=== PATIENT | male | born 1990 | race African-American/Black ===

== ENCOUNTER 2019-04-30 20:04 | Emergency (ER) | payer SELFPAY ==
[2019-04-30] MEDS ORDERED: Haloperidol INJ IV/IM* 5 MG/ML AMP IM ONE (20:06)
[2019-04-30] MEDS ORDERED: LORazepam INJ* 2 MG/ML 1 ML VIAL IM ONE (20:06)
[2019-04-30] MEDS ORDERED: diPHENhydraMINE IV* 50 MG/ML 1 ml VIAL (BENADRYL) IM ONE (20:06)
[2019-04-30] MEDS ORDERED: LORazepam INJ* 2 MG/ML 1 ML VIAL ONE (20:09)
[2019-04-30] MEDS ORDERED: Haloperidol INJ IV/IM* 5 MG/ML AMP ONE ×3 (20:10→20:29)
[2019-04-30] MEDS ORDERED: diPHENhydraMINE IV* 50 MG/ML 1 ml VIAL (BENADRYL) ONE (20:10)
--- NOTE | 2019-04-30 20:13 | ED ---
Substance Abuse/Use - HPI Summary HPI Summary: This patient is a 28 year old male brought in by EMS/LE on a 941 presenting to [facility] with a chief complaint of substance abuse/use. Patient was uncooperative to LE and EMS. EMS states the patient was drinking all day and smoked marijuana. Patient is alert and shouting expletives at the [employer] in the ED. This patient is a level 5 caveat due to altered mental status. - History Of Current Complaint Chief Complaint: EDSubstanceAbuse Stated Complaint: 941 PER EMS Hx Obtained From: EMS - Allergies/Home Medications Allergies/Adverse Reactions: Allergies Allergy/AdvReac Type Severity Reaction Status Date / Time No Known Allergies Allergy Verified 04/30/19 20:38 Home Medications: Home Medications Unobtainable 04/30/19 [History Confirmed 04/30/19] PMH/Surg Hx/FS Hx/Imm Hx - Additional Comments History Additional Comments: LEVEL 5 CAVEAT: PMH Limited due to Altered Mental Status Review of Systems Psychological: Other - Intoxication All Other Systems Reviewed And Are Negative: No Physical Exam - Summary Physical Exam Summary: Appearance: Well-appearing, Well-nourished, lying in bed comfortably, uncooperative. Skin: Warm, dry, no obvious rash Eyes: sclera anicteric, no conjunctival pallor ENT: mucous membranes moist, pharynx appears normal Neck: Supple, nontender Respiratory: Clear to auscultation, no signs of respiratory distress Cardiovascular: Normal S1, S2. No murmurs. Normal distal pulses in tibial and radial bilaterally. Abdomen: Soft, nontender, normal active bowel sounds present Musculoskeletal: Normal, Strength/ROM Intact Neurological: Patient is alert and oriented X3. Psychiatric: Triage Information Reviewed: Yes Vital Signs Reviewed: Yes Procedures - Sedation Patient Received Moderate/Deep Sedation with Procedure: No Diagnostics - Laboratory Result Diagrams: 04/30/19 20:46 04/30/19 20:46 Lab Statement: Any lab studies that have been ordered have been reviewed, and results considered in the medical decision making process. Course/Dx - Course Course Of Treatment: This patient is a 28 year old male brought in by EMS/LE on a 941 presenting to [facility] with a chief complaint of substance abuse/use. The patient will be discharged once sober. The patient will be signed out to Dr. Laughlin at shift change 0700 pending sobriety. - Diagnoses Provider Diagnoses: Alcohol intoxication Discharge ED - Sign-Out/Discharge Documenting (check all that apply): Sign-Out Patient Signing out patient TO: Vern Laughlin - Pend Sobriety at shift change 0700 - Discharge Plan Condition: Stable Disposition: HOME Patient Education Materials: Alcohol Intoxication (ED) Referrals: Calderon Carver MD [Medical Doctor] - 3 Days Additional Instructions: Please follow-up with your primary care physician in 2-3 days. RETURN TO THE ER FOR WORSENING OR CHANGING SYMPTOMS. - Billing Disposition and Condition Condition: STABLE Disposition: Home - Attestation Statements Document Initiated by Scribe: Yes Documenting Scribe: Dwayne Crockett Provider For Whom Candace is Documenting (Include Credential): Vern Parker MD Scribe Attestation: Dwayne Pulido, aliceed for Vern Parker MD on 05/05/19 at 1813. Scribe Documentation Reviewed: Yes Provider Attestation: The documentation as recorded by the Dwayne huff accurately reflects the service I personally performed and the decisions made by me, Vern Parker MD Status of Scribe Document: Viewed
[2019-04-30 20:58] LABS: ABS Eosinophils 0.1 10^3/ul (0-0.6); ABS Lymphocytes 2.2 10^3/ul (1.0-4.8); ABS Monocytes 0.9 10^3/ul (0-0.8); ABS Neutrophils 8.3 10^3/ul (1.5-7.7); Hematocrit 49 % (42-52); Hemoglobin 16.6 g/dL (14.0-18.0); Lymphocyte % 19.1 %; Mean Corpuscular HGB Conc 34 g/dL (31-36); Mean Corpuscular Hemoglobin 29 pg (27-31); Mean Corpuscular Volume 84 fL (80-94); Mean Platelet Volume 7.5 fL (7.4-10.4); Nucleated Red Blood Cells % 0.1; Platelet Count 305 10^3/uL (150-450); Red Blood Count 5.76 10^6 /uL (4.18-5.48); Red Cell Distribution Width 15 % (10-15); White Blood Count 11.5 10^3/uL (3.5-10.8)
[2019-04-30 21:18] LABS: Albumin 4.5 g/dL (3.2-5.2); Albumin/Globulin Ratio 1.6 (1-3); BUN/Creatinine Ratio 9.5 (8-20); Calcium 9.4 mg/dL (8.6-10.3); EGFR African American 91.4 (>60); EGFR Non-African American 75.5 (>60); Globulin 2.8 g/dL (2-4); Potassium 3.7 mmol/L (3.5-5.0); Total Bilirubin 0.7 mg/dL (0.2-1.0); Total Protein 7.3 g/dL (6.4-8.9)
--- NOTE | 2019-05-01 07:05 | ED ---
Progress - Progress Note Progress Note: This patient is a 28 y/o M brought to [facility] by LE/EMS on a 941 with a chief complaint of alcohol intoxication. Patient is a sign-out from Dr. Vern Parker to Dr. Vern Laughlin at 0700 on 05/01/19 at shift change pending sobriety. Course/Dx - Course Course Of Treatment: This patient is a 28 y/o M brought to [facility] by LE/EMS on a 941 with a chief complaint of alcohol intoxication. Patient is a sign-out from Dr. Vern Parker to Dr. Vern Laughlin at 0700 on 05/01/19 at shift change pending sobriety. In the ED, patient sobered, was able to ambulate around the department, and will be discharged home with dx of alcohol intoxication. Patient undersatnds and agrees with this plan. - Diagnoses Provider Diagnoses: Alcohol intoxication Discharge ED - Sign-Out/Discharge Documenting (check all that apply): Patient Departure - Discharge, Receiving Sign-Out Receiving patient FROM: Vern Parker - Discharge Plan Condition: Stable Disposition: HOME Patient Education Materials: Alcohol Intoxication (ED) Referrals: Calderon Carver MD [Medical Doctor] - 3 Days Additional Instructions: Please follow-up with your primary care physician in 2-3 days. RETURN TO THE ER FOR WORSENING OR CHANGING SYMPTOMS. - Billing Disposition and Condition Condition: STABLE Disposition: Home - Attestation Statements Document Initiated by Candace: Yes Documenting Scribe: Danie Rubio Provider For Whom Candace is Documenting (Include Credential): Vern Laughlin MD Scrib[place] Attestation: Danie Pulido, scribed for Vern Laughlin MD on 05/01/19 at 0926. Scribe Documentation Reviewed: Yes Provider Attestation: The documentation as recorded by the Danie huff accurately reflects the service I personally performed and the decisions made by me, Vern Laughlin MD Status of Scribe Document: Viewed Procedures - Sedation Patient Received Moderate/Deep Sedation with Procedure: No
[2019-05-01 08:39] VITALS: BP 135/65
== END 2019-05-01 08:36 | disposition home or self-care (01) ==
LOC: ED 20:04
DX: F10.929 Alcohol use, unspecified with intoxication, unspecified (principal)
CPT/HCPCS: 36415; 80053; 80320; 85025; 96372; 99285; G0480; J1200; J1630; J2060